=== PATIENT | male | born 2000 | race Caucasian/White ===

== ENCOUNTER 2022-06-30 00:49 | Emergency (ER) | payer MEDICAID ==
[~2022-06-30] VITALS: Ht 175.3 cm; Wt 113.0 kg
[2022-06-30 01:17] VITALS: BP 154/80
[2022-06-30] MEDS ORDERED: SODIUM CHLORIDE 0.9% 1,000 ML IV ONE ×2 (02:30)
[2022-06-30] MEDS ORDERED: LIDOCAINE HCL/EPINEPHRINE 1%-EPI 1:100,000 20 ML VIAL INFIL ONE (02:30)
[2022-06-30] MEDS ORDERED: BACITRACIN ZINC OINT UDPKT TOP ONE (02:30)
[2022-06-30] MEDS ORDERED: LIDOCAINE HCL/PF 1% 10 MG/ML 5ML VIAL INFIL ONE (02:30)
[2022-06-30 03:56] LABS: BASOPHILS % 0.2 % (0.0-2.0); EOSINOPHILS % 0.1 % (0.0-5.0); HEMATOCRIT. 47.1 % (42.0-52.0); HEMOGLOBIN. 16.3 g/dL (14.0-18.0); LYMPHOCYTES % 26.2 % (20.0-50.0); MEAN CORPUSCULAR HEMOGLOBIN 30.7 pg (28.0-32.0); MEAN CORPUSCULAR VOLUME 88.4 fL (80.0-94.0); MEAN PLATELET VOLUME 7.9 fl (7.4-10.4); MONOCYTES % 5.3 % (2.0-8.0); NEUTROPHILS % 68.2 % (40.0-76.0); PLATELET 312 x1000/uL (130-400); RED BLOOD CELL COUNT 5.32 mill/uL (4.7-6.1); RED CELL DISTRIBUTION WIDTH 13.2 % (11.6-14.6)
[2022-06-30 04:05] LABS: CHLORIDE 108 mEq/L (98-107)
[2022-06-30 04:12] LABS: ETHANOL BLOOD 187 mg/dL
[2022-06-30] MEDS ORDERED: IBUP-2028 MT (05:12)
== END 2022-06-30 06:04 | disposition home or self-care (01) ==
LOC: ER 00:49
DX: S01.81XA Laceration without foreign body of other part of head, initial encounter (principal); F10.129 Alcohol abuse with intoxication, unspecified; W18.39XA Other fall on same level, initial encounter; Y93.89 Activity, other specified; Y92.89 Other specified places as the place of occurrence of the external cause; Y99.8 Other external cause status; Y90.6 Blood alcohol level of 120-199 mg/100 ml
CPT/HCPCS: 12015; 36415; 70450; 80053; 80320; 85025; 96360; 99284; J3490; J7030; G0480